=== PATIENT | male | born 1995 | race Caucasian/White ===

== ENCOUNTER → 2021-11-05 | Outpatient (CLI) | payer BC ==
--- NOTE | 2021-11-06 02:14 | MR ---
EXAMINATION TYPE: MR shoulder RT wo con DATE OF EXAM: 11/05/2021 COMPARISON: None HISTORY: Rt shoulder pain and limited movement, no known injury Multiplanar multiecho imaging of the right shoulder with no contrast. FINDINGS: The glenoid victor hugo appear fairly normal. Biceps tendon is intact. Subscapularis tendon is intact. The supraspinatus tendon is intact. Infraspinatus tendon is intact. AC joint is within normal limits. There is no evidence of focal bone destruction. Humeral head is intact. No sign of shoulder joint ef fusion. IMPRESSION: Negative MR scan of the right shoulder. No fracture. No evidence of rotator cuff tear.
== END | disposition home or self-care (01) ==
LOC: RADMRIMAIN 19:53
PROVIDERS: ATTEND Orthopaedic Surgery
DX: M25.511 Pain in right shoulder (principal)